=== PATIENT | male | born 1970 | race Caucasian/White ===

== ENCOUNTER 2016-10-04 17:30 | Observation (INO) | payer OTHER ==
--- NOTE | ~2016-10-04 | DS ---
Unit #: [id number] #: [id number] Patient: JULIÁN AUSTIN [id number] [address] [address] [id number] MR#: [id number] NAME: JULIÁN AUSTIN ROOM: 317 Age: Sex: M Admission Date: 10/04/2016 : 1970 Discharge Date: 10/06/2016 Attending Physician: Daiana Salas M.D. Primary Care Physician: Rosie Hu Aprn DISCHARGE SUMMARY ADDENDUM Mr. Austin was monitored 1 day further due to elevate blood pressure of 158/117. Chlorthalidone 25 mg daily was added. At the time of discharge, his blood pressures have improved to 114/81. He denies any further chest pain. Dr. Daily also saw the patient in consultation and the patient will follow up with Dr. Daily as an outpatient to set up a sleep study. DISCHARGE MEDICATIONS Remain the same with the addition of chlorthalidone 25 mg daily. Dictated by... Luci Lyn PStevieA.C. for Luis Craig M.D. CMG/momo TD: 10/06/2016 14:27 JOB #: [id number] DISCHARGE SUMMARY Page 1 of 1 X X DISCHARGE SUMMARY
--- NOTE | ~2016-10-04 | CO ---
Unit #: [id number] #: [id number] Patient: JULIÁN POWERS [id number] [address] [place], [place] [address] [id number] I MR#: [id number] NAME: JULIÁN POWERS ROOM: 317 Age: 46 Sex: M Admission Date: 10/04/2016 : 1970 Attending Physician: Daiana Salas M.D. Primary Care Physician: Rosie Hu Aprn CONSULTATION REPORT REASON FOR CONSULT Shortness of breath. HISTORY OF PRESENT ILLNESS This is a very pleasant, 46-year-old, male with past medical history significant for hypertension and hyperlipidemia who was previously on medication for both diseases; however, he has not followed with any primary care doctor for a while after his doctor left out of town. Patient stated that he has been progressively dyspneic for the last few months, but much so over the last couple of weeks with significant increase in bilateral lower and upper extremity edema. Patient also gained between 15 to 20 pounds over the last few weeks. Patient stated, also, that he is chronically fatigued. Per his , he has witnessed apnea at night. Patient also falls asleep during the day easily and sometimes he has had to pull off the road to take a nap. Patient smoked only for one year and quit five years ago. PAST MEDICAL HISTORY 1. Hypertension. 2. Hyperlipidemia. 3. Presumed obstructive sleep apnea. PAST SURGICAL HISTORY Bladder surgery. HOME MEDICATIONS None on presentation. ALLERGIES Benadryl and sulfa. SOCIAL HISTORY Patient quit smoking five years ago and he smoked only for one year. No history of alcohol or drug abuse. 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 FAMILY HISTORY Coronary artery disease. REVIEW OF SYSTEMS Unit #: [id number] #: [id number] Patient: JULIÁN POWERS Twelve-point review of systems was obtained and was negative, except for what was mentioned in the HPI. PHYSICAL EXAMINATION GENERAL: The patient is in acute distress. VITAL SIGNS: Blood pressure 136/61, respiratory rate 21, O2 saturation 98% on room air. HEENT: Atraumatic and normocephalic. EOMI. NECK: Supple. No JVD. No lymphadenopathy. CHEST: Fine rhonchi at the right lower base. HEART: S1 and S2. No murmurs, gallops, or rubs. ABDOMEN: Soft and nontender. Bowel sounds are positive. No hepatosplenomegaly. EXTREMITIES: Trace edema in the feet. SKIN: No rashes. 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 No focal motor/sensory deficits. DIAGNOSTIC STUDIES LABORATORY: Labs show that creatinine is 0.1, glucose 100, magnesium 2.1, and CO2 23. White blood count 11 and hemoglobin 14.7. IMAGING: Chest x-ray normal. ASSESSMENT 1. Presumed obstructive sleep apnea. 2. Diastolic congestive heart failure. 3. Hypertension. 4. Hyperlipidemia. PLAN Again, this is a very pleasant, 46-year-old, male with 1-year history of smoking who quit 5 years ago presented with progressive shortness of breath and edema. Patient has witnessed apnea and he has symptoms highly suggestive of obstructive sleep apnea. His Mallampati grade is III. Patient needs to have a sleep study arranged as an outpatient. A business card was given to the patient to follow up with me within the next week to three weeks. He has to make appointment. I would like to thank Dr. Ureña for allowing me to be part of this patient's care. Dictated by... Ra Chen TD: 10/06/2016 09:09 JOB #: [id number] Unit #: [id number] #: [id number] Patient: JULIÁN POWERS CONSULTATION REPORT Page 1 of 1 X OSWALDO ALMONTE MD CONSULTATION REPORT
--- NOTE | ~2016-10-04 | HP ---
Unit #: [id number] #: [id number] Patient: JULIÁN AUSTIN [id number] [address] [facility]. [place], [place] [address] [id number] I MR#: [id number] NAME: JULIÁN AUSTIN ROOM: 317 Age: 46 Sex: M Admission Date: 10/04/2016 : 1970 Attending Physician: Daiana Salas M.D. Primary Care Physician: Rosie Hu Aprn HISTORY AND PHYSICAL DATE October 05, 2016. HISTORY OF PRESENT ILLNESS The patient is a 46-year-old male with history of hypertension and high cholesterol, who was previously on medication for both high blood pressure and high cholesterol. His physician left the practice at least four months ago and the patient has not been taking his medications for approximately four months. He has noticed increased swelling in his legs and hands for the past three weeks. He has also had chest pain over the past few weeks but has noticed within the past week that this has gotten worse. He thought maybe this was due to something he ate initially but the episodes persisted. He also notices increased dyspnea on exertion and states that he has probably gained approximately 15 pounds. He describes the chest discomfort as a pressure but there are also some sharp pains. The pressure generally lasts 30 seconds to around one minute. He also has some anxiety associated and noticed that his heart rate races at that time. He also complains of episodes of sweating with minimal exertion. He says that he "pours sweat." The patient also complains of a recent tooth infection on the left side and has had some subsequent discomfort in his ear as well. He also says that he has dizzy spells daily but denies any syncope. PAST MEDICAL HISTORY 1. Hypertension. 2. Hyperlipidemia. PAST SURGICAL HISTORY Bladder surgery. HOME MEDICATIONS None (patient not compliant with medications). ALLERGIES Benadryl and sulfa. SOCIAL HISTORY He does not smoke. He quit in July 2015. He denies alcohol use or illicit drug use. 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 FAMILY HISTORY His mother had CAD and CABG in her 50s. Father had CAD and stents in his 50s. Unit #: [id number] #: [id number] Patient: JULIÁN AUSTIN REVIEW OF SYSTEMS GENERAL: Denies recent fevers, chills, or myalgias. HEENT: Denies headaches, vision loss, hearing loss, epistaxis. He does have left-sided toothache. NECK: Denies pain. CARDIAC: As above. PULMONARY: No cough, hemoptysis, or wheezing. ABDOMEN: No nausea, vomiting, diarrhea. He has had some bright red blood in his stool he attributes to hemorrhoids. GENITOURINARY: No hematuria. EXTREMITIES: Swelling as discussed above. NEUROLOGIC: Dizziness but no syncope. SKIN: No rashes or hives. DIAGNOSTIC STUDIES Current labs and tests: LABORATORY: Troponin less than 0.03 at 4:40 this morning, less than 0.05 at 1931 yesterday. BNP 11. White blood cells 11, hemoglobin 14.7, hematocrit 44.3, platelets 238,000. Sodium 138, potassium 4.1, chloride 105, CO2 of 23, BUN 11, creatinine 0.9, glucose 100. ALT 69, AST 31. Magnesium 2.1. IMAGING: Chest x-ray was normal. CARDIOVASCULAR: EKG showed normal sinus rhythm. PHYSICAL EXAMINATION VITAL SIGNS: Blood pressure is 124/88, heart rate 77 and regular, respirations 18 and regular, temperature 97.4. Weight is 216 pounds. GENERAL: The patient is a well-developed, well-nourished, obese male in no acute distress. Awake, alert, and oriented x3. SKIN: No rashes or hives. HEENT: Head is normocephalic and atraumatic. There are no xanthelasmas. Oral mucosa is pink and moist. NECK: No JVD or carotid bruits. SPINE: No kyphosis or scoliosis. CHEST: Clear to auscultation bilaterally without wheezes, rhonchi, rales, or accessory muscle use. CORONARY: Regular rate and rhythm without murmur, gallop, rub, or lift. ABDOMEN: Soft, nontender, nondistended. Positive bowel sounds x4. The abdominal pulsation is not enlarged. EXTREMITIES: No clubbing, cyanosis, or edema. NEUROLOGIC: Awake and oriented x3. ASSESSMENT AND PLAN 1. Chest pain. 2. Dyspnea on exertion. 3. Swelling. 4. Hypertension. 5. Hyperlipidemia. 6. Remote tobacco use. 7. Medical noncompliance. Mr. Austin's case was also discussed with Dr. Craig who has also evaluated the patient. A stress Cardiolite and echocardiogram have been ordered for today. Further recommendations will be made based on the results of these tests. We will also get him started back on a blood Unit #: [id number] #: [id number] Patient: GIO,JULIÁN pressure and high cholesterol regimen. Dictated by Luci Lyn PStevieAStevieC. for Luis Craig M.D. CMG/luis TD: 10/05/2016 10:32 JOB #: [id number] HISTORY AND PHYSICAL Page 1 of 1 X X HISTORY AND PHYSICAL
--- NOTE | ~2016-10-04 | DS ---
Unit #: [id number] #: [id number] Patient: JULIÁN AUSTIN [id number] [address] [address] [id number] I MR#: [id number] NAME: JULIÁN AUSTIN ROOM: 317 Age: 46 Sex: M Admission Date: 10/04/2016 : 1970 Discharge Date: 10/05/2016 Attending Physician: Daiana Salas M.D. Primary Care Physician: Rosie Hu Aprn DISCHARGE SUMMARY ADMITTING DIAGNOSES 1. Chest pain. 2. Dyspnea on exertion. 3. Swelling. 4. Hypertension. 5. Hyperlipidemia. 6. Medical noncompliance. DISCHARGE DIAGNOSES 1. Chest pain, resolved. 2. Dyspnea on exertion. 3. Swelling. 4. Hypertension. 5. Hyperlipidemia. 6. Medical noncompliance. HOSPITAL COURSE The patient is a 46-year-old male with history of hypertension, hyperlipidemia, who has had intermittent chest pain and swelling in his hands and feet as well as shortness of breath over the past few weeks. Myocardial infarction was ruled out with negative enzymes. The patient's chest x-ray was normal. He had a 2-D echo Doppler and stress Cardiolite performed on 10/05/2016. The patient walked 9 minutes on a Galo protocol with no chest pain and no significant ST changes. Cardiolite images are pending; however, verbal report from Dr. Craig is there was some anterior ischemia. EF was normal on 2-D echo per Dr. Craig. DISCHARGE MEDICATIONS 1. Lipitor 20 mg q.h.s. 2. Atacand 16 mg daily. 3. Aspirin 81 mg daily. 4. Protonix 20 mg daily. Mr. Austin's case was discussed with Dr. Craig. He will discuss the patient's final results with him and likely follow in the outpatient clinic for further workup as well as for follow up on his hypertension. The patient will be discharged home with advice to follow a low sodium diet. He can return to his regular activity. Dictated by... Gian ColonA.CStevie for Luis Craig M.D. Unit #: [id number] #: [id number] Patient: JULIÁN AUSTIN TD: 10/06/2016 08:14 JOB #: [id number] DISCHARGE SUMMARY Page 1 of 1 X X DISCHARGE SUMMARY
--- NOTE | ~2016-10-04 | EKG ---
PATIENT: JULIÁN POWERS UNIT #: [id number] Ventricular Rate: 90 BPM Atrial Rate: 90 BPM P-R Interval: 164 ms QRS Duration: 106 ms Q-T Interval: 350 ms QTC Calculation(Bezet): 428 ms P [place]: 28 degrees Calculated R [place]: 65 degrees Calculated T [place]: 31 degrees Diagnosis Line: Normal sinus rhythm Diagnosis Line: Normal ECG Diagnosis Line: When compared with ECG of 01-AUG-2015 16:03, Diagnosis Line: ST no longer depressed in Anterior leads Diagnosis Line: Confirmed by DERICK GRANDA MD ([id number]) on 10/04/2016 Diagnosis Line: 10:59:48 PM INTERPRETING MD: KALEE SPIVEY
--- NOTE | ~2016-10-04 | CR72 ---
[facility] A Service of [facility] & [facility] RADIOLOGY TEXT RESULTS PATIENT: JULIÁN POWERS LOCATION: [facility] 317-01 : [birth year] UNIT #: [id number] AGE: [address]: Daiana Salas MD SEX: M ORDER DR: [id number] [facility] [address] [facility]. [place], [place] [address] [id number] MR#: [id number] #: [id number] NAME: JULIÁN POWERS : 1970 SEX: M STUDY DATE/TIME: 10/04/2016 17:26 UNIT: CEDOF ROOM: 83488 STUDY DESCRIPTION: CR Chest Single View Portable Attending Physician: Daiana Salas M.D. Ordering Physician: Zachary Sotelo M.D. Primary Care Physician: Rosie Hu Aprn MEDICAL IMAGING REPORT This report is preliminary unless electronic signature is present EXAM Portable AP view of the chest COMPARISON August 01, 2015 and June 04, 2015. INDICATION 46-year-old male with dyspnea for 2 weeks. History of hypertension. FINDINGS The cardiomediastinal silhouette is within normal limits. No evidence of pneumothorax, pleural effusion or acute airspace disease. IMPRESSION Normal exam. Dictated by... Brad Allison M.D. THIS IS AN ELECTRONICALLY VERIFIED REPORT Brad Allison M.D. at 10/08/2016 8:33 AM Asa TD: 10/04/2016 21:56 JOB #: [id number] MEDICAL IMAGING REPORT Page 1 of 1 COPY
--- NOTE | ~2016-10-04 | ST ---
Unit #: [id number] #: [id number] Patient: JULIÁN POWERS [id number] [address] [address] [id number] I MR#: [id number] NAME: JULIÁN POWERS : 1970 SEX: M STUDY DATE/TIME: 10/05/2016 UNIT: C3A PCU ROOM: [address] [place] [address] DESCRIPTION: Attending Physician: Daiana Salas M.D. Primary Care Physician: Rosie Hu Aprn CARDIOLOGY REPORT EXAM Nuclear stress test result. INDICATIONS Chest discomfort. SUMMARY The patient exercised on Galo protocol for 9 minutes, achieved a workload MET of 10.4. Patient's resting heart rate was 92 beats per minute, which increased to 148 beats per minute representing 85% of the maximum age-predicted heart rate. The patient's resting blood pressure was 127/88 mmHg which increased to 160/80 mmHg. The patient's resting ECG showed normal sinus rhythm with normal ST segments. The patient's stress ECG showed sinus tachycardia with preserved ST segments. There are no ventricular, supraclavicular ectopy noted. There are no pauses noted. CONCLUSION 1. Negative ECG portion of the Galo treadmill stress test portion of the Cardiolite study for ischemia. 2. Good exercise tolerance. 3. Normal blood pressure and heart rate response to exercise. 4. Perfusion imaging dictated below. PERFUSION IMAGING RESULTS The patient underwent nuclear stress test. Received a resting dose of 11.63 mCi and a stress dose of 36 mCi. On gated imaging, patient appears to have normal wall motion with a preserved ejection fraction. The patient's LV EF is 66%. On raw images, completing rest and stress images, there appears to be vertical motion noted on stress images. On perfusion imaging, completing rest and stress images, a small amount of anterior wall ischemia cannot be ruled out due to vertical motion artifact. CONCLUSION 1. A small amount of anterior ischemia cannot be ruled out due to vertical motion artifact. 2. Preserved ejection fraction. 3. ECG portion as dictated above. 4. Clinical correlation noted. Unit #: [id number] #: [id number] Patient: JULIÁN POWERS Dictated by... Ra Daly/luis TD: 10/05/2016 15:32 JOB #: [id number] CARDIOLOGY REPORT Page 1 of 1 X KEVYN ARAUJO MD CARDIOLOGY REPORT
[~2016-10-04 17:30] MED LIST: BENTYL20 MG PO; FLAGYL PO; LIPITOR40 MG PO; NEXIUM PO; VICODIN 5/1 TAB 5/50 PO
[2016-10-04 17:31] LABS: BASOPHIL% 0.1 % (0-2.5); EOSINOPHIL# 0.1 X10e3 (0-0.7); HEMATOCRIT 44.3 % (38.0-50.0); HEMOGLOBIN 14.7 gm/dL (13.0-16.0); LYMPHOCYTE# 2.8 X10e3 (1.0-3.5); MEAN CELL VOLUME 85.2 FL (83-96); MEAN CORPUSCULAR HEMOGLOBIN 28.4 PG (28-34); MEAN CORPUSCULAR HGB CONC 33.3 g/dL (30-36); MEAN PLATELET VOLUME 9.2 FL (6.5-11.5); MONOCYTE# 1.2 X10e3 (0-1.0); MONOCYTE% 10.5 % (3.0-12.0); NEUTROPHIL% 63.4 % (40-75); PLATELET COUNT 238 X10e3 (140-420); RED CELL DISTRIBUTION WIDTH 12.7 % (11.0-15.5)
[2016-10-04 17:32] LABS: DIFF IND NO
[2016-10-04 17:57] LABS: ALBUMIN SERUM 4.3 g/dL (3.5-5.0); ALKALINE PHOSPHATASE 85 U/L (32-92); ALT (SGPT) 69 U/L (10-40); AST (SGOT) 31 U/L (10-42); BILIRUBIN,TOTAL 0.4 mg/dL (0.2-2.0); BLOOD UREA NITROGEN 11 mg/dL (9-23); BUN/CREATININE RATIO 12.22; CALCIUM SERUM 9.1 mg/dL (8.4-10.2); CARBON DIOXIDE 23 mmol/L (22-31); CHLORIDE 105 mmol/L (100-111); CREATININE SERUM 0.9 mg/dL (0.6-1.4); GLOM FILT RATE Estimated 102.8 mL/min (>60); GLUCOSE FASTING 100 mg/dL (70-110); MAGNESIUM 2.1 mg/dL (1.6-3.0); POTASSIUM 4.1 mmol/L (3.5-5.1); PROTEIN TOTAL SERUM 7.2 g/dL (6.0-8.3); SODIUM 138 mmol/L (135-145)
[2016-10-04 18:03] LABS: BILIRUBIN, DIRECT <0.1 mg/dL (0.0-0.2); BILIRUBIN,INDIRECT 0.3 mg/dL (0.0-0.9)
[2016-10-04 18:23] LABS: POC - CKMB <1.0 ng/mL (0.0-7.9); POC - TROPONIN <0.05 ng/mL (<=0.05)
[2016-10-04 19:33] LABS: POC - CKMB 1.2 ng/mL (0.0-7.9); POC - TROPONIN <0.05 ng/mL (<=0.05)
[2016-10-04] MEDS ORDERED: PANTOPRAZOLE SO20 MG PO (19:37)
[2016-10-04] MEDS ORDERED: ATACAND16 MG PO (19:37)
[2016-10-04] MEDS ORDERED: LO-DOSE ASPIRIN81 M1 PO (19:37)
[2016-10-04] MEDS ORDERED: LIPITOR20 MG PO (19:37)
[2016-10-05 07:25] LABS: %MB 1.6 % (0.0-4.0); MB 1.5 ng/ml
[2016-10-06 06:22] LABS: CHOLESTEROL 218 mg/dL (0-200); HDL CHOLESTEROL 35 mg/dL (29-75); LDL CHOLESTEROL 125 mg/dL (-130); LDL/HDL RATIO 4 RATIO (0-4); TRIGLYCERIDES 289 mg/dL (10-160)
[2016-10-06] MEDS ORDERED: CHLORTHALIDONE25 MG PO (13:42)
== END 2016-10-06 14:34 | disposition home or self-care (01) ==
LOC: CED 17:30 → CEDOF 20:01 → C3A PCU 22:51
PROVIDERS: Emergency Medicine; Internal Medicine; Internal Medicine Cardiovascular Disease
DX: R07.89 Other chest pain (principal); R06.00 Dyspnea, unspecified; M79.89 Other specified soft tissue disorders; I11.0 Hypertensive heart disease with heart failure; I50.30 Unspecified diastolic (congestive) heart failure; E78.5 Hyperlipidemia, unspecified; Z91.19 Patient's noncompliance with other medical treatment and regimen; Z79.82 Long term (current) use of aspirin; Z88.2 Allergy status to sulfonamides; Z82.49 Family history of ischemic heart disease and other diseases of the circulatory system; Z87.891 Personal history of nicotine dependence
CPT/HCPCS: 36415; 71010; 78452; 80048; 80061; 80076; 82550; 82553; 83036; 83735; 83880; 84443; 84484; 85025; 93005; 93017; 93306; 99285; A9500; G0378